=== PATIENT | female | born 1945 | race Hispanic/Latino ===

== ENCOUNTER 2022-07-23 23:11 | Emergency (ER) | payer OTHER ==
[~2022-07-23] VITALS: Ht 165.1 cm; Wt 78.9 kg
[2022-07-23 23:50] LABS: BASOPHILS % (AUTO) 0.4 % (0.0-5.0); EOSINOPHILS % (AUTO) 2.5 % (0.0-8.0); LYMPHOCYTES % (AUTO) 22.4 % (21.0-51.0); MEAN CORPUSCULAR HEMOGLOBIN 30.9 pg (27.0-33.0); MEAN CORPUSCULAR HGB CONC 32.6 g/dL (32.0-36.0); MEAN CORPUSCULAR VOLUME 94.8 fL (79-99); NEUTROPHILS % (AUTO) 68.4 % (40.0-77.0); PLATELET COUNT (AUTO) 237 K/uL (130-400); RED BLOOD CELL COUNT(AUTO) 3.27 MIL/uL (4.00-5.50); RED CELL DISTRIBUTION WIDTH 14.4 % (11.0-15.5); WHITE BLOOD COUNT (AUTO) 9.2 K/uL (4.8-10.8)
[2022-07-23 23:51] LABS: APPEARANCE,URINE CLEAR (CLEAR); BILIRUBIN,URINE NEGATIVE (NEGATIVE); COLOR,URINE YELLOW (YELLOW); GLUCOSE, URINE (UA) NEGATIVE (NEGATIVE); KETONES,URINE NEGATIVE (NEGATIVE); LEUKOCYTE ESTERASE ,URINE NEGATIVE Leu/uL (NEGATIVE); NITRATE,URINE NEGATIVE (NEGATIVE); OCCULT BLOOD,URINE NEGATIVE (NEGATIVE); PROTEIN,URINE NEGATIVE (NEGATIVE); UROBILINOGEN,URINE 0.2 mg/dL (0.2-1.0)
[2022-07-23 23:56] LABS: CREATININE 1.9 mg/dL (0.5-1.5); POTASSIUM 5.3 mmol/L (3.5-5.1)
[2022-07-24 00:01] LABS: ALBUMIN 3.6 g/dL (3.5-5.0); TOTAL PROTEIN, SERUM 7.6 g/dL (6.0-8.3)
[2022-07-24 01:48] VITALS: BP 159/75
== END 2022-07-24 02:11 | disposition home or self-care (01) ==
LOC: EDH 23:11
DX: K92.1 Melena (principal); E11.9 Type 2 diabetes mellitus without complications; I10 Essential (primary) hypertension; M10.9 Gout, unspecified; Z90.49 Acquired absence of other specified parts of digestive tract; Z98.890 Other specified postprocedural states; Z88.8 Allergy status to other drugs, medicaments and biological substances
CPT/HCPCS: 36415; 74176; 80053; 81003; 82270; 84484; 85025; 86850; 86900; 86901; 93005

== ENCOUNTER → 2025-05-25 | Outpatient (CLI) | payer OTHER, MEDICAID ==
[~2025-05-25] MED LIST: ALLO100T PO; AMLO-258 PO; ASPI-1005 PO; FOLI1TAB85 PO; HYDR25 PO; LINA145C PO; METO-409 PO; SODI650T PO
--- NOTE | 2025-05-25 21:41 | HMCIMG ---
EXAM: XR Lumbar spine, 3 Views. CLINICAL HISTORY: 80 year old female with chronic lower back pain, without sciatica. COMPARISON: None provided. FINDINGS: BONES: Moderate scoliosis with convexity to the right. DISCS/DEGENERATIVE CHANGES: Moderate degenerative changes of the lumbar spine. SOFT TISSUES: Cholecystectomy clips are present. VASCULATURE: Atherosclerotic iliac bifurcation. IMPRESSION: 1. Moderate scoliosis with convexity to the right. 2. Moderate degenerative changes of the lumbar spine. /[place]
== END | disposition home or self-care (01) ==
LOC: RAH 10:35
PROVIDERS: ATTEND Family Medicine
DX: M47.816 Spondylosis without myelopathy or radiculopathy, lumbar region (principal); M41.86 Other forms of scoliosis, lumbar region; I70.8 Atherosclerosis of other arteries; M54.50 Low back pain, unspecified; G89.29 Other chronic pain; Z90.49 Acquired absence of other specified parts of digestive tract
CPT/HCPCS: 72100